=== PATIENT | male | born 1950 | race Caucasian/White ===

== ENCOUNTER 2017-10-05 11:15 | Outpatient (CLI) | payer MEDICARE, BC | END 2017-10-05 11:16 | disposition home or self-care (01) | LOC: BICCT 11:15 | PROVIDERS: ATTEND Family Medicine | DX: R51 Headache (principal) | CPT/HCPCS: 70450 ==

== ENCOUNTER 2019-05-09 11:11 | Outpatient (CLI) | payer MEDICARE, BC | END 2019-05-09 11:12 | disposition home or self-care (01) | LOC: CTENTCT 11:11 | PROVIDERS: ATTEND Otolaryngology Plastic Surgery within the Head & Neck | DX: J32.9 Chronic sinusitis, unspecified (principal) | CPT/HCPCS: 70486 ==

== ENCOUNTER 2019-05-30 17:30 | Outpatient (CLI) | payer MEDICARE, BC | END 2019-05-30 17:31 | disposition home or self-care (01) | LOC: SLEEPLAB 17:30 | PROVIDERS: ATTEND Otolaryngology Plastic Surgery within the Head & Neck | DX: G47.33 Obstructive sleep apnea (adult) (pediatric) (principal); G47.9 Sleep disorder, unspecified; R06.83 Snoring; R51 Headache; R09.89 Other specified symptoms and signs involving the circulatory and respiratory systems; I10 Essential (primary) hypertension | CPT/HCPCS: 95806 ==

== ENCOUNTER 2020-06-05 06:29 | Day surgery (SDC) | payer MEDICARE, BC ==
[2020-06-04 14:42] VITALS: BMI 34.0
[2020-06-05] MEDS ORDERED: Midazolam HCl 2 mg/2 ml Vial ONE (07:11)
[2020-06-05] MEDS ORDERED: Famotidine/PF 20 mg/2ml Vial ONE (07:11)
[2020-06-05] MEDS ORDERED: Fentanyl 100 MCG/2 ML VIAL ONE (07:11)
[2020-06-05] MEDS ORDERED: Levofloxacin 500 mg/D5W 100 ml Premix Bag ONE (07:56)
[2020-06-05] MEDS ORDERED: B & O ONE (08:39)
[2020-06-05] MEDS ORDERED: Lidocaine 1% PF 5 ML VIAL ONE (13:19)
[2020-06-05] MEDS ORDERED: Ondansetron PF 4 MG/2 ML Vial ONE (13:19)
[2020-06-05] MEDS ORDERED: PROPOFOL 200 MG/20 ML VIAL ONE (13:19)
== END 2020-06-05 12:20 | disposition home or self-care (01) ==
LOC: SDC 06:29
PROVIDERS: ATTEND Urology
PROC: 0T7D8DZ Dilation of Urethra with Intraluminal Device, Via Natural or Artificial Opening Endoscopic (ICD-10-PCS; principal; 2020-06-05)
DX: N40.1 Benign prostatic hyperplasia with lower urinary tract symptoms (principal); R35.1 Nocturia; R39.12 Poor urinary stream; E29.1 Testicular hypofunction; G47.30 Sleep apnea, unspecified; I10 Essential (primary) hypertension; F41.9 Anxiety disorder, unspecified; F32.9 Major depressive disorder, single episode, unspecified; F90.0 Attention-deficit hyperactivity disorder, predominantly inattentive type; F17.220 Nicotine dependence, chewing tobacco, uncomplicated; Z79.82 Long term (current) use of aspirin; Z79.899 Other long term (current) drug therapy; Z96.651 Presence of right artificial knee joint; Z88.1 Allergy status to other antibiotic agents
CPT/HCPCS: C9740; L8699; J1956; J2250; J2405; J2704; J3010; S0028

== ENCOUNTER 2022-10-06 10:52 | Outpatient (CLI) | payer MEDICARE, BC | END 2022-10-06 10:53 | disposition home or self-care (01) | LOC: BICMRI 10:52 | PROVIDERS: ATTEND Family Medicine | DX: R11.0 Nausea (principal); R63.4 Abnormal weight loss; R42 Dizziness and giddiness; R51.9 Headache, unspecified | CPT/HCPCS: 70551; 71046 ==

== ENCOUNTER 2022-11-16 07:45 | Outpatient (CLI) | payer MEDICARE, BC | END 2022-11-16 07:46 | disposition home or self-care (01) | LOC: NM 07:45 | PROVIDERS: ATTEND Physician Assistant Medical | DX: K59.00 Constipation, unspecified (principal); R11.0 Nausea; R63.4 Abnormal weight loss; K30 Functional dyspepsia | CPT/HCPCS: 78264; A9541 ==

== ENCOUNTER 2023-06-05 15:27 | Emergency (ER) | payer BC, MEDICARE | END 2023-06-05 18:33 | disposition home or self-care (01) | LOC: ERS 15:27 | DX: S06.0X0A Concussion without loss of consciousness, initial encounter (principal); I10 Essential (primary) hypertension; W01.198A Fall on same level from slipping, tripping and stumbling with subsequent striking against other object, initial encounter | CPT/HCPCS: 70450 ==

== ENCOUNTER 2024-10-16 11:35 | Inpatient (IN) | payer MEDICARE ==
[2024-10-16 12:13] LABS: #Basophils Less than 0.03 10x3/uL (0.0-0.2); #Eosinophils Less than 0.03 10x3/uL (0.0-0.7); #Monocytes 0.57 10x3/uL (0.11-0.59); #Neutrophils 6.04 10x3/uL (1.40-6.50); %Basophils 0.1 % (0.0-1.0); %Eosinophils 0.0 % (0.0-10.0); %Lymphocytes 13.4 % (21.0-51.0); %Monocytes 7.3 % (0.0-10.0); %Neutrophils 77.4 % (42.0-75.0); Hematocrit 35.7 % (42.0-52.0); Hemoglobin 12.0 g/dL (14.0-18.0); Mean Corpuscular Hemoglobin 30.4 pg (27.0-31.0); Mean Corpuscular Volume 90.4 fL (78.0-98.0); Platelet Count 203 10x3/uL (130-400); Red Blood Cell (RBC) Count 3.95 mill/uL (4.70-6.10); White Blood Cell (WBC) Count 7.81 10x3/uL (4.8-10.8)
[2024-10-16 12:30] LABS: ALT (SGPT) 24 U/L (Less than 45); AST (SGOT) 37 U/L (11-34); Albumin 4.2 g/dL (3.1-4.5); Alkaline Phosphatase 98 U/L (40-110); Anion Gap 13 mmol/L (10-20); BUN (Urea Nitrogen) 15 mg/dL (8.4-25.7); Bilirubin, Total 0.6 mg/dL (0.3-1.2); CK (CPK) 235 U/L (30-200); Calc. Creatinine Clearance 0 mL/min (70-130); Calcium 9.5 mg/dL (7.8-10.44); Carbon Dioxide 27 mmol/L (23-31); Chloride 104 mmol/L (98-107); Globulin 3.0 g/dL (2.4-3.5); Glucose 117 mg/dL (83-110); Magnesium 2.1 mg/dL (1.6-2.6); Potassium 4.0 mmol/L (3.5-5.1); Sodium 140 mmol/L (136-145)
[2024-10-16 12:59] LABS: INR-International Normal Ratio 1.0; PTT 34.9 sec (22.9-36.1); Prothrombin Time 13.6 sec (12.0-14.7)
[2024-10-16] MEDS ORDERED: niCARdipine 25 MG/10 ML SDV ONE (14:22)
[2024-10-16] MEDS ORDERED: levETIRAcetam 500 MG (5 mL) VIAL ONE (14:22)
[2024-10-16] MEDS ORDERED: Acetaminophen 325 MG TAB PO PRN (14:28)
[2024-10-16] MEDS ORDERED: Ondansetron PF 4 MG/2 ML Vial IVP PRN (14:28)
[2024-10-16 15:58] LABS: Bacteria/HPF None Seen HPF (None Seen); CAUTI Indications for Culture Acute Hematuria; Glucose, Urine (Dipstick) Normal (Negative); Leukocyte Negative Leu/uL (Negative); Protein, Urine (Dipstick) 10 mg/dL (Neg-Trace); RBC/HPF 0-3 HPF (0-3); Specific Gravity, Urine 1.022 (1.002-1.036); WBC/HPF 0-3 HPF (0-3)
[2024-10-16 16:00] LABS: Urine Culture Reflex No No
[2024-10-16 18:38] VITALS: BMI 17.2
[2024-10-16] MEDS: Senokot S 8.6-50 MG TAB PO SCH (20:37)
[2024-10-16] MEDS: levETIRAcetam 500 MG (5 mL) VIAL SLOW IVP SCH (20:38)
[2024-10-16] MEDS: Famotidine 20 MG TAB PO SCH (20:38)
[2024-10-16] MEDS ORDERED: levETIRAcetam 500 MG (5 mL) VIAL SLOW IVP SCH (21:00)
[2024-10-17 04:45] LABS: #Basophils Less than 0.03 10x3/uL (0.0-0.2); #Eosinophils Less than 0.03 10x3/uL (0.0-0.7); #Monocytes 0.55 10x3/uL (0.11-0.59); #Neutrophils 3.15 10x3/uL (1.40-6.50); %Basophils 0.2 % (0.0-1.0); %Eosinophils 0.2 % (0.0-10.0); %Lymphocytes 26.0 % (21.0-51.0); %Monocytes 10.8 % (0.0-10.0); %Neutrophils 62.2 % (42.0-75.0); Hematocrit 33.0 % (42.0-52.0); Hemoglobin 10.9 g/dL (14.0-18.0); Mean Corpuscular Hemoglobin 30.2 pg (27.0-31.0); Mean Corpuscular Volume 91.4 fL (78.0-98.0); Platelet Count 177 10x3/uL (130-400); Red Blood Cell (RBC) Count 3.61 mill/uL (4.70-6.10); White Blood Cell (WBC) Count 5.07 10x3/uL (4.8-10.8)
[2024-10-17 05:13] LABS: ALT (SGPT) 23 U/L (Less than 45); AST (SGOT) 34 U/L (11-34); Albumin 3.7 g/dL (3.1-4.5); Alkaline Phosphatase 86 U/L (40-110); Anion Gap 12 mmol/L (10-20); BUN (Urea Nitrogen) 14 mg/dL (8.4-25.7); Bilirubin, Total 0.6 mg/dL (0.3-1.2); Calc. Creatinine Clearance 106 mL/min (70-130); Calcium 9.4 mg/dL (7.8-10.44); Carbon Dioxide 25 mmol/L (23-31); Chloride 104 mmol/L (98-107); Globulin 3.0 g/dL (2.4-3.5); Glucose 95 mg/dL (83-110); Potassium 3.7 mmol/L (3.5-5.1); Sodium 137 mmol/L (136-145)
[2024-10-17] MEDS: niCARdipine 25 MG in Sodium Chloride 0.9% 250 ML 250 ML IVPB SCH (06:00)
[2024-10-17] MEDS: Lisinopril 20 MG TAB PO SCH (09:20)
[2024-10-17 15:33] VITALS: BMI 17.6
[2024-10-17] MEDS: ALPRAZolam 0.25 MG TAB PO PRN (18:26)
[2024-10-18] MEDS: RILUZOLE 50 MG DT SCH ×2 (11:15→11:29)
[2024-10-18] MEDS: levETIRAcetam 500 MG (5 mL) VIAL SLOW IVP SCH (11:28)
[2024-10-18] MEDS ORDERED: Iopamidol-370 76% 500 ML MDV (1 ML CHARGE) ONE (12:59)
[2024-10-18] MEDS: Mirtazapine 15 MG TAB PO SCH (20:43)
[2024-10-18] MEDS: Aspirin 81 mg Enteric Coated Tablet PO SCH (20:44)
[2024-10-18] MEDS: hydrALAZINE 20 MG/ML VIAL SLOW IVP PRN (20:49)
[2024-10-18 21:44] LABS: Anion Gap 14 mmol/L (10-20); BUN (Urea Nitrogen) 7 mg/dL (8.4-25.7); Calc. Creatinine Clearance 104 mL/min (70-130); Calcium 9.5 mg/dL (7.8-10.44); Carbon Dioxide 24 mmol/L (23-31); Chloride 104 mmol/L (98-107); Glucose 177 mg/dL (83-110); Magnesium 1.8 mg/dL (1.6-2.6); Potassium 3.1 mmol/L (3.5-5.1); Sodium 139 mmol/L (136-145)
[2024-10-18 22:22] LABS: #Basophils Less than 0.03 10x3/uL (0.0-0.2); #Eosinophils Less than 0.03 10x3/uL (0.0-0.7); #Monocytes 0.70 10x3/uL (0.11-0.59); #Neutrophils 6.47 10x3/uL (1.40-6.50); %Basophils 0.1 % (0.0-1.0); %Eosinophils 0.1 % (0.0-10.0); %Lymphocytes 20.8 % (21.0-51.0); %Monocytes 7.6 % (0.0-10.0); %Neutrophils 69.9 % (42.0-75.0); Hematocrit 33.1 % (42.0-52.0); Hemoglobin 11.4 g/dL (14.0-18.0); Mean Corpuscular Hemoglobin 30.6 pg (27.0-31.0); Mean Corpuscular Volume 89.0 fL (78.0-98.0); Platelet Count 253 10x3/uL (130-400); Red Blood Cell (RBC) Count 3.72 mill/uL (4.70-6.10); White Blood Cell (WBC) Count 9.26 10x3/uL (4.8-10.8)
[2024-10-19] MEDS: Magnesium 2 GM/50 ML(in water) 2 GM in Premix 1 BAG IVPB SCH (00:03)
[2024-10-19] MEDS: Lisinopril 20 MG TAB PO SCH (10:35)
[2024-10-22] MEDS: Megestrol Acetate 800 MG/20 ML UDCUP PO SCH (20:44)
[2024-10-22 23:22] VITALS: TEMP 98.3
[2024-10-23] MEDS: Pancrelipase DR 12,000 1 CAP PO SCH (09:27)
[2024-10-23 11:57] VITALS: BP 145/77
== END 2024-10-23 13:55 | DRG 82 ==
LOC: ERS 11:35 → CCU 14:28 → UNDOADMIN 14:28 → PCU 10-17 11:28
PROVIDERS: ADMIT Internal Medicine; ATTEND Internal Medicine
DX: S06.5XAA Traumatic subdural hemorrhage with loss of consciousness status unknown, initial encounter (principal); E43 Unspecified severe protein-calorie malnutrition; S06.A0XA Traumatic brain compression without herniation, initial encounter; S22.31XA Fracture of one rib, right side, initial encounter for closed fracture; G12.21 Amyotrophic lateral sclerosis; Z68.1 Body mass index [BMI] 19.9 or less, adult; W18.30XA Fall on same level, unspecified, initial encounter; Z88.1 Allergy status to other antibiotic agents; N40.0 Benign prostatic hyperplasia without lower urinary tract symptoms; Z98.890 Other specified postprocedural states; I10 Essential (primary) hypertension; Z51.5 Encounter for palliative care; Z79.899 Other long term (current) drug therapy; I95.1 Orthostatic hypotension
CPT/HCPCS: 36415; 36416; 70450; 71250; 71275; 72125; 74177; 80048; 80053; 81001; 82550; 83735; 83880; 84443; 85025; 85379; 85610; 85730; 86850; 86900; 86901; 93005; 93010; 96374; 96375; 97139; J0360; J1953; J3475; J7030; J7050; Q9967; S0179